=== PATIENT | female | born 1995 | race Caucasian/White ===

== ENCOUNTER → 2020-11-06 | Outpatient (CLI) | payer SELFPAY ==
--- NOTE | 2020-11-06 15:34 | US ---
EXAMINATION TYPE: US OB >= 14 wk fetus DATE OF EXAM: 11/06/2020 COMPARISON: None CLINICAL HISTORY: Z34.90 Encounter for supervision of normal Confirm dates TECHNIQUE: Transabdominal (TA) GESTATIONAL AGE / DATING Physician Established: Not established yet Dates by LMP: Unknown Dates by First Scan: This is 1st scan Dates by Current Scan: (25 weeks/4 days) EDC: 02/15/2021 SURVEY IUP: Single PLACENTA: Anterior PREVIA: No Previa FATMATA: 12.0 cm Normal CERVICAL LENGTH (transabdominal: norm > 3.0cm): 4.5 cm BIOMETRY PRESENTATION: Breech LIE: Longitudinal BPD: 6.2 cm 25 weeks / 2 days HC: 23.7 cm 25 weeks / 5 days AC: 21.3 cm 25 weeks / 6 days FL: 4.9 cm 26 weeks / 3 days ESTIMATED WEIGHT IN GRAMS: 880 grams ESTIMATED WEIGHT IN LBS/OZ: 1 lbs. 15 oz. WEIGHT PERCENTAGE BASED ON ESTABLISHED DATES: % HC/AC: 1.11 Normal FL/AC: 23.0 Normal HEART RATE: 132 bpm RHYTHM: Normal Femur length to head circumference ratio is minimally elevated measuring 20.69, normal 18.6/20.36. IMPRESSION: 1. Single intrauterine gestation estimated at 25 weeks 4 days gestation based on the current ultrasou nd measurements. Cardiac activity measures 132 bpm during the exam. 2. Slight femur length to head circumference ratio outside standard limits.
== END | disposition home or self-care (01) ==
LOC: RADUSWWP 14:35
PROVIDERS: ATTEND Obstetrics & Gynecology
DX: R93.89 Abnormal findings on diagnostic imaging of other specified body structures (principal); Z3A.25 25 weeks gestation of pregnancy
CPT/HCPCS: 76805

== ENCOUNTER → 2020-11-18 | Outpatient (CLI) | payer SELFPAY ==
--- NOTE | 2020-11-19 08:41 | US ---
EXAMINATION TYPE: US OB anatomy transabd DATE OF EXAM: 11/18/2020 COMPARISON: NONE HISTORY: Z34.90 SUPERVISION OF NORMAL anatomy exam at 27 weeks TECHNIQUE: OBTA EXAM MEASUREMENTS: GESTATIONAL AGE / DATING Physician Established: (27 weeks/2 days) EDC: 02/15/2021 Dates by LMP: unknown Dates by First Scan: NEW ACCOUNTS BANKING REPRESENTATIVE Dates by Current Scan for: (27 weeks/6 days) EDC: 02/11/2021 SURVEY IUP: Single PLACENTA: Anterior PREVIA: No previa FATMATA: 10.0 cm Normal CERVICAL LENGTH (transabdominal: norm > 3.0cm): 3.2 cm BIOMETRY PRESENTATION: Vertex LIE: Longitudinal BPD: 6.9 cm 27 weeks / 6 days HC: 24.5 cm 26 weeks / 5 days AC: 23.4 cm 27 weeks / 6 days FL: 5.4 cm 28 weeks / 5 days ESTIMATED WEIGHT IN GRAMS: 1145 grams ESTIMATED WEIGHT IN LBS/OZ: 2 lbs. 8 oz. WEIGHT PERCENTAGE BASED ON ESTABLISHED DATE: 63 % HC/AC: 1.05 Normal FL/AC: 23 Normal HEART RATE: 120 bpm RHYTHM: Normal ANATOMY SEEN (within normal limits): * Lateral Vent (< 1 cm) 0.4 cm * Cisterna Magna (< 1.1 cm) 0.3 cm * Cerebellum (varies with age) 2.7 cm Choroid Plexus (bilateral) Midline Falx Cavus Septi Pellucidi Four Chamber Heart Outflow tracts: LVOT/RVOT Stomach Situs Nose / Lips Diaphragm Kidneys (bilateral) Bladder Cord Insert Three Vessel Cord Longitudinal Spine Transverse Spine Arms (bilateral) Legs (bilateral) IMPRESSION: Single viable intrauterine .
== END | disposition home or self-care (01) ==
LOC: RADUSWWP 16:19
PROVIDERS: ATTEND Obstetrics & Gynecology
DX: Z34.92 Encounter for supervision of normal pregnancy, unspecified, second trimester (principal); Z3A.27 27 weeks gestation of pregnancy
CPT/HCPCS: 76811

== ENCOUNTER → 2021-01-27 | Outpatient (CLI) | payer OTHER ==
--- NOTE | 2021-01-27 10:28 | US ---
EXAMINATION TYPE: US OB >= 14 wk fetus DATE OF EXAM: 01/27/2021 COMPARISON: Second trimester ultrasound November 06, 2020 CLINICAL HISTORY: Z34.90 Encounter for supervision of normal pregnan TECHNIQUE: Transabdominal (TA) GESTATIONAL AGE / DATING Physician Established: (37 weeks/2 days) EDC: 02/15/21 Dates by LMP: LMP unknown Dates by First Scan: (37 weeks/2 days) EDC: 02/15/21 Dates by Current Scan: (36 weeks/4 days) EDC: 02/20/21 SURVEY IUP: Single PLACENTA: Anterior PREVIA: No Previa FATMATA: 12.8 cm Normal CERVICAL LENGTH (transabdominal: norm > 3.0cm): 3.1 cm BIOMETRY PRESENTATION: Vertex LIE: Longitudinal BPD: 9.1 cm 37 weeks / 0 days HC: 31.7 cm 35 weeks / 5 days AC: 31.8 cm 35 weeks / 6 days FL: 7.3 cm 37 weeks / 3 days ESTIMATED WEIGHT IN GRAMS: 2894 grams ESTIMATED WEIGHT IN LBS/OZ: 6 lbs. 6 oz. WEIGHT PERCENTAGE BASED ON ESTABLISHED DATES: 31% HC/AC: 1.0 Normal FL/AC: 23% Normal HEART RATE: 135 bpm RHYTHM: Normal Single live intrauterine gestation is redemonstrated. No cervical thinning currently. Normal cephalad presentation currently. No ultrasound evidence for placenta previa. Calculated amniotic fluid index within normal limits. biometry measurements congruent and within normal limits with satisfactor y interval progression. IMPRESSION: As above.
== END | disposition home or self-care (01) ==
LOC: RADUSWWP 09:33
PROVIDERS: ATTEND Obstetrics & Gynecology
DX: Z34.90 Encounter for supervision of normal pregnancy, unspecified, unspecified trimester (principal)
CPT/HCPCS: 76805

== ENCOUNTER 2021-02-02 09:50 | Inpatient (IN) | payer OTHER ==
[2021-02-02] MEDS ORDERED: TERBUTALINE 1 MG/ML VIAL SQ PRN (10:59)
[2021-02-02] MEDS ORDERED: LIDOCAINE 0.5% (PF) 5 MG/ML (50 ML SDV) SQ PRN (10:59)
[2021-02-02] MEDS ORDERED: OXYTOCIN 10 UNIT/ML 1 ML VIAL IM PRN (10:59)
[2021-02-02] MEDS ORDERED: METHYLERGONOVINE 0.2 MG/ML 1 ML AMP IM PRN (10:59)
[2021-02-02] MEDS ORDERED: CARBOPROST TROMETHAMINE 250 MCG/ML 1 ML AMP IM PRN (10:59)
[2021-02-02] MEDS ORDERED: OXYTOCIN 30 UNITS/500 ML NS 30 UNIT in SALINE 1 500ML.BAG IV SCH ×2 (11:00→13:00)
[2021-02-02] MEDS: LACTATED RINGERS 1,000 ML IV SCH ×4 (11:10→22:24)
[2021-02-02 11:46] LABS: Uric Acid 5.7 mg/dL (3.7-7.4)
[2021-02-02 11:49] LABS: Appearance,Urine Clear (Clear); Bilirubin,Urine Negative (Negative); Blood,Urine Negative (Negative); Color,Urine Light Yellow; Creatinine,Urine Random 27.1 mg/dL; Glucose,Urine (UA) Negative (Negative); Ketones,Urine Negative (Negative); Leukocyte Esterase,Urine Negative (Negative); Nitrite,Urine Negative (Negative); PH, Urine 6.5 (5.0-8.0); Protein,Urine 1+ (Negative); Protein/Creatinine Ratio,Urine 3.284; Specific Gravity,Urine 1.004 (1.001-1.035); Urobilinogen,Urine <2.0 mg/dL (<2.0)
[2021-02-02 11:50] LABS: Squamous Epithelial Cell,Urine <1 /hpf (0-4); WBC,Urine <1 /hpf (0-5)
[2021-02-02] MEDS ORDERED: LACTATED RINGERS 1,000 ML IV ONE (11:51)
[2021-02-02] MEDS ORDERED: CITRIC ACID-SODIUM CITRATE 15 ML CUP PO ONE (11:51)
[2021-02-02 11:56] LABS: Amphetamine Screen,Urine Not Detected (NotDetected); Barbiturate Screen,Urine Not Detected (NotDetected); Benzodiazepines Screen,Urine Not Detected (NotDetected); Cocaine Screen,Urine Not Detected (NotDetected); Methadone Screen, Urine Not Detected (NotDetected); Opiate Screen,Urine Not Detected (NotDetected); Oxycodone Screen, Urine Not Detected (NotDetected); Phencyclidine Screen,Urine Not Detected (NotDetected); Tricyclic Antidepressant,Urine Not Detected (NotDetected); Urn Cannabinoid Scrn Not Detected (NotDetected)
[2021-02-02 11:58] LABS: INR 0.8 (<1.2)
[2021-02-02 12:01] LABS: Partial Thromboplastin Time 19.8 sec (22.0-30.0); Prothrombin Time 9.4 sec (9.0-12.0)
[2021-02-02 12:04] LABS: Anisocytosis Moderate; Basophils # (A) 0.1 k/uL (0-0.2); Basophils % (A) 1 %; Eosinophils # (A) 0.2 k/uL (0-0.7); Eosinophils % (A) 2 %; HCT 34.8 % (34.0-46.0); Hypochromasia Marked; Lymphocytes # (A) 1.3 k/uL (1.0-4.8); Lymphocytes % (A) 11 %; MCHC 31.6 g/dL (31.0-37.0); MCV 75.9 fL (80.0-100.0); Mean Platelet Volume 10.5; Microcytosis Moderate; Monocytes # (A) 0.7 k/uL (0-1.0); Monocytes % (A) 6 %; Neutrophils # (A) 8.9 k/uL (1.3-7.7); Neutrophils % (A) 79 %; Platelet Count 197 k/uL (150-450); RBC 4.59 m/uL (3.80-5.40); RDW 20.4 % (11.5-15.5); WBC 11.3 k/uL (3.8-10.6)
[2021-02-02] MEDS ORDERED: fentaNYL (PF) 50 MCG/ML 2 ML AMP ONE (12:09)
[2021-02-02] MEDS ORDERED: OXYTOCIN 10 UNIT/ML 1 ML VIAL ONE (12:09)
[2021-02-02] MEDS ORDERED: MORPHINE SULFATE (PF) 0.3 MG/0.3 ML SYR ONE (12:09)
[2021-02-02] MEDS ORDERED: KETOROLAC 15 MG/ML 1 ML VIAL ONE (12:09)
[2021-02-02] MEDS ORDERED: ONDANSETRON 4 MG/2 ML VIAL ONE (12:09)
[2021-02-02] MEDS ORDERED: diphenhydrAMINE 50 MG/ML 1 ML VIAL IVP PRN (12:50)
[2021-02-02] MEDS ORDERED: Rhogam IMMUNE GLOBULIN 1,500 UNIT/1 ML IM ONE (12:50)
[2021-02-02] MEDS ORDERED: ONDANSETRON 4 MG/2 ML VIAL IVP PRN (12:50)
[2021-02-02] MEDS ORDERED: HYDROmorphone 2 MG TAB PO PRN (12:50)
[2021-02-02] MEDS ORDERED: METOCLOPRAMIDE 5 MG/ML 2 ML VIAL IVP PRN (12:50)
[2021-02-02] MEDS ORDERED: diphenhydrAMINE 25 MG CAP PO PRN (12:50)
[2021-02-02] MEDS ORDERED: LANOLIN CREAM 5 GM TUBE TOPICAL PRN (12:50)
[2021-02-02] MEDS ORDERED: NALOXONE 0.4 MG/ML 1 ML VIAL IV PRN (12:50)
[2021-02-02] MEDS ORDERED: ZOLPIDEM 5 MG TAB PO PRN (12:50)
--- NOTE | 2021-02-02 13:01 | P.HPOB ---
History of Present Illness H&P Date: 02/02/21 Chief Complaint: Leaking of fluid. This patient is a 25-year-old 1 para 0 female estimated date of confinement 02/15/2021 estimated gestational age 38 and one sevenths weeks who presents to labor and delivery triage with complaints of gush of fluid at 9:00 this morning. Patient's care has been in [facility], patient called her polyethylene combiner this morning and they told her to come to [facility]. We did call the patient's office and were able to get records. records indicate the patient is Rh- and she did receive program. Patient denies any complications from this . Upon presentation patient's be grossly ruptured and thick meconium-stained fluid. She's had no care here at this hospital. Review of Systems Genitourinary: Reports Menstruation: Reports amenorrhea Past Medical History Past Medical History: Asthma History of Any Multi-Drug Resistant Organisms: None Reported Past Surgical History: No Surgical Hx Reported Additional Past Surgical History / Comment(s): right knee surgery x 2 Past Anesthesia/Blood Transfusion Reactions: No Reported Reaction Past Psychological History: Depression Additional Psychological History / Comment(s): treated depression in the past Smoking Status: Never smoker Past Drug Use History: None Reported - Past Family History Sister(s) Family Medical History: Diabetes Mellitus Father Family Medical History: Hypertension Medications and Allergies Home Medications Medication Instructions Recorded Confirmed Type Albuterol Inhaler [Ventolin Hfa 2 puff INHALATION DAILY PRN 02/02/21 02/02/21 History Inhaler] Ferrous Sulfate [Iron] 325 mg PO DAILY 02/02/21 02/02/21 History Pnv No.95/Ferrous Fum/Folic AC 1 each PO DAILY 02/02/21 02/02/21 History [ Multivitamin Tablet] Allergies Allergy/AdvReac Type Severity Reaction Status Date / Time No Known Allergies Allergy Verified 02/02/21 10:11 Exam Vital Signs Temp Pulse Resp BP Pulse Ox 02/02/21 11:32 97.6 F 66 17 139/91 98 Intake and Output 02/01/21 02/02/21 02/02/21 22:59 06:59 14:59 Other: Weight 56.699 kg - OBG Physical Exam Abdomen: bowel sounds normal, no diffuse tenderness, no bruit present, no guarding noted, no hepatomegaly, no splenomegaly, no mass Vulva: both: normal Vagina: normal moisture (Thick meconium-stained fluid), no discharge Cervix: no lesion (Cervix is 350% -2 station vertex), no discharge Uterus: enlarged Results blood work shows she has A negative. She did receive RhoGAM. Result Diagrams: 02/02/21 11:10 02/02/21 11:10 Abnormal Lab Results - Last 24 Hours (Table) 02/02/21 02/02/21 02/02/21 Range/Units 11:10 11:10 11:10 WBC 11.3 H (3.8-10.6) k/uL Hgb 11.0 L (11.4-16.0) gm/dL MCV 75.9 L (80.0-100.0) fL MCH 24.0 L (25.0-35.0) pg RDW 20.4 H (11.5-15.5) % Neutrophils # 8.9 H (1.3-7.7) k/uL APTT 19.8 L (22.0-30.0) sec Urine Protein 1+ H (Negative) Assessment and Plan Assessment: This is a 25-year-old 1 para 0 female estimated gestational age 38 and one sevenths weeks who presents to labor and delivery with thick meconium- stained fluid and monitoring shows a nonreactive NST with one deep variable deceleration. Due to my concerns for the unknown etiology of her meconium and the remote from delivery and recommended proceed immediately with delivery by section. Plan is primary low transverse section. Patient and I and her partner have discussed the surgery and risks including risks of infec tion, bleeding, possible injury to bowel, bladder, vessels, and/or other organs. All the patient's questions are answered and a written consent is obtained. (1) 38 weeks gestation of Current Visit: Yes Status: Acute Code(s): Z3A.38 - 38 WEEKS GESTATION OF SNOMED Code(s): 22895701 (2) Spontaneous rupture of amniotic membranes Current Visit: Yes Status: Acute Code(s): JHN9128 - SNOMED Code(s): 068835232 (3) Thick meconium stained amniotic fluid Current Visit: Yes Status: Acute Code(s): P96.83 - MECONIUM STAINING SNOMED Code(s): 170934288 (4) Non-reassuring electronic monitoring tracing Current Visit: Yes Status: Acute Code(s): O36.8390 - MATERN CARE FOR ABNLT FETL HRT RATE OR RHYM, UNSP TRI, UNSP SNOMED Code(s): 163168525
--- NOTE | 2021-02-02 13:07 | P.OP ---
Date of Procedure: 02/02/21 Preoperative Diagnosis: #1: 38 and one sevenths weeks . #2: Thick meconium-stained amniotic fluid. #3: Nonreassuring heart rate tracing. #4: Remote from delivery Postoperative Diagnosis: Same Procedure(s) Performed: Primary low transverse section Anesthesia: spinal Surgeon: Maynor Beltran Industrial Methods Consultant #1: Izabel Brooks Estimated Blood Loss (ml): 600 Pathology: other (Placenta) Condition: stable Disposition: floor Indications for Procedure: Please see dictated H&P for intimate details of this patient's admission. Brief summary this is a 25-year-old 1 para 0 female 38 weeks gestation admitted to this labor and delivery unit with complaints of gush of green amniotic fluid patient has no care here. heart tones are not reactive initially and she does have a deep variable deceleration. Patient is r emote from delivery therefore recommended proceed with delivery immediately by section. She does understand this procedure and risks. Operative Findings: This was a vigorous viable female infant Apgars 8 and 9 delivery time is 1227 hrs. Infant grossly appeared normal. The baby and the placenta were meconium- stained. There was a loop of cord next to the head Description of Procedure: This patient is taken to the operating room. She is already had a Turpin catheter placed to straight drain. Patient is sat up and after an appropriate timeout spinal anesthetic is placed. With an adequate level of anesthesia, she has abdominal prep and drape. Scalpels and taken Pfannenstiel skin incision is then made. A second scalpel is taken down the fascia and the fascia scored with a knife. Fascial incision extended bilaterally using the Doll scissors. Fascia is dissected off the rectus muscles. The rectus muscles are the peritoneum identified and entered sharply. Peritoneal incision extended superior and inferior without difficulty. Bladder blade is then placed. Bladder peritoneum was taken sharply off the lower uterine segment. Scalpels and taken a low transverse uterine incision is then made. Using a hemostat I into the uterine cavity bluntly and there is loss of thick meconium fluid. Uterine incision is extended bluntly. Piece of cord is presenting right at the incision right next to the head. Infant's head is then gently guided through the incision with fundal pressure. Mouth and nares are bulb suctioned. The umbilical cords and doubly clamped and cut infant is handed off immediately to the sample collector in attendance. This is a vigorous viable female Apgars 8 and 9 delivery time was 1227 hrs. After delivery of the infant the placenta is manually extracted intact. This is sent to pathology. Uterus is then externalized uterine incision demarcated with Foley clamps. Uterine incision then closed using 0 Vicryl running locked fashion 2 layers. Excellent hemostasis is noted. Excess fluid is removed from the abdomen and pelvis. Uterus, tubes, ovaries appear normal for term gestation. The parietal peritoneum was then closed using 0 Vicryl running fashion. The rectus muscles reapproximated in 0 Vicryl interrupted fashion. Fascial incision is then closed using 0 PDS. Fascial incision is intact and hemostatic. Subcutaneous tissues and closed using a 3-0 Vicryl. Skin is and closed using ary. All counts are correct 3. There are no complications. and mother are stable in the delivery room.
[2021-02-02] MEDS: KETOROLAC 15 MG/ML 1 ML VIAL IVP PRN (18:11)
[2021-02-02 22:01] LABS: Hepatitis B Surface Antigen Non-Reactive (Non-Reactive)
[2021-02-02] MEDS: SENNOSIDES-DOCUSATE SODIUM 1 EACH TAB PO SCH (22:23)
[2021-02-03] MEDS: KETOROLAC 15 MG/ML 1 ML VIAL IVP PRN (00:25)
[2021-02-03] MEDS: ACETAMINOPHEN TAB 500 MG TAB PO PRN ×3 (04:54→22:56)
--- NOTE | 2021-02-03 06:32 | P.PNOBGPC ---
Subjective - Subjective Patient reports: Reports appetite normal, Reports voiding normally, Reports pain well controlled, Reports ambulating normally : doing well Objective - Vital Signs Latest vital signs: Vital Signs Temp Pulse Resp BP Pulse Ox 02/03/21 04:00 97.9 F 75 17 128/77 98 02/02/21 23:44 98.1 F 78 18 134/79 100 02/02/21 20:00 97.7 F 80 18 136/78 100 02/02/21 14:50 97.5 F L 52 L 16 145/69 99 02/02/21 14:20 50 L 16 142/70 100 02/02/21 13:50 52 L 17 120/73 100 02/02/21 13:35 49 L 16 103/62 98 02/02/21 13:20 52 L 16 105/68 99 02/02/21 13:05 61 17 120/71 98 02/02/21 12:50 96.7 F L 51 L 17 116/70 99 02/02/21 11:32 97.6 F 66 17 139/91 98 Intake and Output 02/02/21 02/02/21 02/03/21 14:59 22:59 06:59 Intake Total 1000 1000 Output Total 200 200 Balance 800 800 Intake: IV 1000 1000 Output: Urine 200 200 Uretheral (Turpin) 200 Other: Voiding Method Indwelling Catheter Indwelling Catheter # Voids 1 Weight 56.699 kg - Exam Lungs: bilateral: normal Chest: Normal S1, Normal S2 Extremities: Present: normal Abdomen: Present: normal appearance, soft. Absent: distention, tenderness Incision: Present: normal, dry, intact Uterus: Present: normal, firm - Labs Labs: Abnormal Lab Results - Last 24 Hours (Table) 02/02/21 02/02/21 02/02/21 Range/Units 11:10 11:10 11:10 WBC 11.3 H (3.8-10.6) k/uL Hgb 11.0 L (11.4-16.0) gm/dL MCV 75.9 L (80.0-100.0) fL MCH 24.0 L (25.0-35.0) pg RDW 20.4 H (11.5-15.5) % Neutrophils # 8.9 H (1.3-7.7) k/uL APTT 19.8 L (22.0-30.0) sec Urine Protein 1+ H (Negative) Assessment and Plan Assessment: Post operative day #1. Patient is resting without new complaints. Vital signs are stable and she is afebrile. Of note yesterday on admission she had some elevated blood pressures and preeclampsia labs were sent which showed normal laboratory values with the exception of 1+ protein and elevated protein creatinine ratio. Her blood pressures have been fine since delivery. Uterus is firm nontender and her incision is intact and dry. She's having normal lochia. CBC is pending at time of this dictation. Patient's tolerating clear liquids and she is urinating without difficulty. Plan today is to advance her diet, check a CBC, allow the patient to shower, and encourage ambulation. (1) 38 weeks gestation of Current Visit: Yes Status: Acute Code(s): Z3A.38 - 38 WEEKS GESTATION OF SNOMED Code(s): 06689828 (2) Spontaneous rupture of amniotic membranes Current Visit: Yes Status: Acute Code(s): TMK3411 - SNOMED Code(s): 510298409 (3) Thick meconium stained amniotic fluid Current Visit: Yes Status: Acute Code(s): P96.83 - MECONIUM STAINING SNOMED Code(s): 370597263 (4) Non-reassuring electronic monitoring tracing Current Visit: Yes Status: Acute Code(s): O36.8390 - MATERN CARE FOR ABNLT FETL HRT RATE OR RHYM, UNSP TRI, UNSP SNOMED Code(s): 880689324
[2021-02-03 07:46] LABS: Anisocytosis Moderate; Basophils % (A) 0 %; Eosinophils # (A) 0.1 k/uL (0-0.7); Eosinophils % (A) 1 %; HCT 27.1 % (34.0-46.0); Hypochromasia Slight; Lymphocytes # (A) 1.4 k/uL (1.0-4.8); Lymphocytes % (A) 10 %; MCHC 33.1 g/dL (31.0-37.0); MCV 75.6 fL (80.0-100.0); Mean Platelet Volume 7.9; Microcytosis Moderate; Monocytes # (A) 0.7 k/uL (0-1.0); Monocytes % (A) 5 %; Neutrophils # (A) 12.3 k/uL (1.3-7.7); Neutrophils % (A) 84 %; Platelet Count 178 k/uL (150-450); RBC 3.58 m/uL (3.80-5.40); RDW 20.9 % (11.5-15.5); WBC 14.7 k/uL (3.8-10.6)
[2021-02-03] MEDS: SENNOSIDES-DOCUSATE SODIUM 1 EACH TAB PO SCH ×2 (07:55→19:39)
[2021-02-03] MEDS: IBUPROFEN 600 MG TAB PO PRN ×3 (07:55→19:39)
--- NOTE | 2021-02-03 09:07 | P.PN ---
Progress Note - Text Date:02/03/21 Time:645am Patient is status post . Patient seen this morning with VAS score of 6.no c/o of pruritus, no c/o nausea/vomiting, comfortable and doing well.
[2021-02-03] MEDS: SIMETHICONE 80 MG CHEWABLE PO PRN ×2 (11:57→19:38)
[2021-02-03 15:17] LABS: C. trachomatis,PCR Negative (Neg,Equiv); Chlamydia trachomatis Source Urine; N. gonorrhoeae,PCR Negative (Neg,Equiv); Neisseria Source Urine
[2021-02-04] MEDS: IBUPROFEN 600 MG TAB PO PRN ×4 (01:25→22:08)
[2021-02-04] MEDS: ACETAMINOPHEN TAB 500 MG TAB PO PRN ×3 (04:25→20:08)
--- NOTE | 2021-02-04 06:00 | P.PNOBGPC ---
Subjective - Subjective Patient reports: Reports appetite normal, Reports voiding normally, Reports pain well controlled, Reports ambulating normally : doing well Objective - Vital Signs Latest vital signs: Vital Signs Temp Pulse Resp BP Pulse Ox 02/03/21 23:41 98.7 F 78 16 124/69 02/03/21 16:00 98.7 F 76 16 123/76 98 02/03/21 11:59 99.6 F 88 16 123/79 96 02/03/21 08:00 98.2 F 63 18 134/87 100 Intake and Output 02/03/21 02/03/21 02/04/21 14:59 22:59 06:59 Other: # Voids 2 1 1 - Exam Lungs: bilateral: normal Chest: Normal S1, Normal S2 Extremities: Present: normal Abdomen: Present: normal appearance, soft. Absent: distention, tenderness Incision: Present: normal, dry, intact Uterus: Present: normal, firm - Labs Labs: Abnormal Lab Results - Last 24 Hours (Table) 02/03/21 Range/Units 06:39 WBC 14.7 H (3.8-10.6) k/uL RBC 3.58 L (3.80-5.40) m/uL Hgb 9.0 L D (11.4-16.0) gm/dL Hct 27.1 L (34.0-46.0) % MCV 75.6 L (80.0-100.0) fL RDW 20.9 H (11.5-15.5) % Neutrophils # 12.3 H (1.3-7.7) k/uL Assessment and Plan Assessment: Postoperative day #2. Patient is complaining of gas pains but otherwise feels well. Vital signs are stable and she is afebrile. Uterus is firm nontender and her incision is intact and dry. Patient is tolerating some solid fluid however says she hasn't passed much gas. CBC yesterday was fine. Baby is having some mild jaundice issues. Plan today is to encourage more ambulation. Also continue routine postoperative care. (1) 38 weeks gestation of Current Visit: Yes Status: Acute Code(s): Z3A.38 - 38 WEEKS GESTATION OF SNOMED Code(s): 68016877 (2) Spontaneous rupture of amniotic membranes Current Visit: Yes Status: Acute Code(s): SAY2704 - SNOMED Code(s): 869281584 (3) Thick meconium stained amniotic fluid Current Visit: Yes Status: Acute Code(s): P96.83 - MECONIUM STAINING SNOMED Code(s): 737963011 (4) Non-reassuring electronic monitoring tracing Current Visit: Yes Status: Acute Code(s): O36.8390 - MATERN CARE FOR ABNLT FETL HRT RATE OR RHYM, UNSP TRI, UNSP SNOMED Code(s): 289005590
[2021-02-04] MEDS: SENNOSIDES-DOCUSATE SODIUM 1 EACH TAB PO SCH ×2 (07:17→20:07)
[2021-02-04] MEDS: SIMETHICONE 80 MG CHEWABLE PO PRN ×2 (15:08→22:08)
[2021-02-05 01:05] VITALS: RESP 16
[2021-02-05] MEDS: IBUPROFEN 600 MG TAB PO PRN ×2 (04:37→09:00)
[2021-02-05] MEDS: ACETAMINOPHEN TAB 500 MG TAB PO PRN (06:20)
--- NOTE | 2021-02-05 06:42 | P.PNOBGPC ---
Subjective - Subjective Patient reports: Reports appetite normal, Reports voiding normally, Reports pain well controlled, Reports ambulating normally : doing well Objective - Vital Signs Latest vital signs: Vital Signs Temp Pulse Resp BP Pulse Ox 02/05/21 00:00 97.7 F 83 16 133/87 02/04/21 16:00 98.9 F 88 18 126/78 95 02/04/21 08:00 98.9 F 88 18 126/72 98 Intake and Output 02/04/21 02/04/21 02/05/21 14:59 22:59 06:59 Other: # Voids 1 2 2 # Bowel Movements 2 - Exam Lungs: bilateral: normal Chest: Normal S1, Normal S2 Extremities: Present: normal Abdomen: Present: normal appearance, soft. Absent: distention, tenderness Incision: Present: normal, dry, intact Uterus: Present: normal, firm Assessment and Plan Assessment: Postoperative day #3. Patient is resting without complaints. Vital signs are stable and she is afebrile. Patient had 2 bowel movements yesterday and feeling much better. Plan today is to continue routine care and discharge home later today. (1) 38 weeks gestation of Current Visit: Yes Status: Acute Code(s): Z3A.38 - 38 WEEKS GESTATION OF SNOMED Code(s): 04456310 (2) Spontaneous rupture of amniotic membranes Current Visit: Yes Status: Acute Code(s): WRL6639 - SNOMED Code(s): 938930695 (3) Thick meconium stained amniotic fluid Current Visit: Yes Status: Acute Code(s): P96.83 - MECONIUM STAINING SNOMED Code(s): 506902330 (4) Non-reassuring electronic monitoring tracing Current Visit: Yes Status: Acute Code(s): O36.8390 - MATERN CARE FOR ABNLT FETL HRT RATE OR RHYM, UNSP TRI, UNSP SNOMED Code(s): 249985661
--- NOTE | 2021-02-05 06:43 | P.DS ---
Providers Date of admission: 02/02/21 10:41 Expected date of discharge: 02/05/21 Attending physician: Maynor Beltran Primary care physician: Stated None - Discharge Diagnosis(es) (1) 38 weeks gestation of Current Visit: Yes Status: Acute (2) Spontaneous rupture of amniotic membranes Current Visit: Yes Status: Acute (3) Thick meconium stained amniotic fluid Current Visit: Yes Status: Acute (4) Non-reassuring electronic monitoring tracing Current Visit: Yes Status: Acute Hospital Course: Please see dictated H&P for intimate details of this patient's admission. Brief summary this is a pleasant 25-year-old 1 para 0 female presented to labor and delivery with complaints of gush of fluid. Patient had no care here and subsequently underwent a primary low transverse section for nonreassuring heart tones and thick meconium-stained fluid. Please see dictated operative note. Postoperatively the patient and baby did well was discharged home postoperative day #3 follow-up in 1 week. Procedures: Primary low transverse section Patient Condition at Discharge: Good Plan - Discharge Summary New Discharge Prescriptions: No Action Ferrous Sulfate [Iron] 325 mg PO DAILY Pnv No.95/Ferrous Fum/Folic AC [ Multivitamin Tablet] 1 each PO DAILY Albuterol Inhaler [Ventolin Hfa Inhaler] 2 puff INHALATION DAILY PRN PRN Reason: Respiratory Distress Discharge Medication List Albuterol Inhaler [Ventolin Hfa Inhaler] 2 puff INHALATION DAILY PRN 02/02/21 [History] Ferrous Sulfate [Iron] 325 mg PO DAILY 02/02/21 [History] Pnv No.95/Ferrous Fum/Folic AC [ Multivitamin Tablet] 1 each PO DAILY 02/02/21 [History]
[2021-02-05] MEDS: SENNOSIDES-DOCUSATE SODIUM 1 EACH TAB PO SCH (09:00)
[2021-02-05 09:32] VITALS: BP 134/81; PULSE 62; TEMP 98
[2021-02-06 21:17] LABS: HIV 2 AB Non-Reactive (Non-Reactive); HIV AB P24 Non-Reactive (Non-Reactive); HIV P24 AG Non-Reactive (Non-Reactive)
== END 2021-02-05 13:35 | disposition home or self-care (01) | DRG 788 ==
LOC: FBPOP 09:50 → 4FBP 10:41
PROVIDERS: ADMIT Obstetrics & Gynecology; ATTEND Obstetrics & Gynecology
PROC: 10D00Z1 Extraction of Products of Conception, Low, Open Approach (ICD-10-PCS; principal; 2021-02-02 13:00)
DX: O76 Abnormality in fetal heart rate and rhythm complicating labor and delivery (principal); J45.909 Unspecified asthma, uncomplicated; O77.0 Labor and delivery complicated by meconium in amniotic fluid; O99.52 Diseases of the respiratory system complicating childbirth; Z37.0 Single live birth; Z3A.38 38 weeks gestation of pregnancy; Z83.3 Family history of diabetes mellitus
CPT/HCPCS: 59025; 80306; 81001; 82570; 82947; 83615; 84112; 84156; 84450; 84460; 84520; 84550; 85025; 85384; 85461; 85610; 85730; 86762; 86780; 86850; 86870; 86880; 86900; 86901; 87340; 87390; 87491; 87591; 88307; 99213

== ENCOUNTER 2024-05-17 06:05 | Inpatient (IN) | payer OTHER | END 2024-05-19 13:55 | disposition home or self-care (01) | DRG 560 | LOC: 4FBP 06:05 | PROVIDERS: ADMIT Obstetrics & Gynecology; ATTEND Obstetrics & Gynecology | PROC: 10E0XZZ Delivery of Products of Conception, External Approach (ICD-10-PCS; principal; 2024-05-17) | PROC: 3E033VJ Introduction of Other Hormone into Peripheral Vein, Percutaneous Approach (ICD-10-PCS; 2024-05-17) | PROC: 10907ZC Drainage of Amniotic Fluid, Therapeutic from Products of Conception, Via Natural or Artificial Opening (ICD-10-PCS; 2024-05-17) | PROC: 0HQ9XZZ Repair Perineum Skin, External Approach (ICD-10-PCS; 2024-05-17) | DX: O34.211 Maternal care for low transverse scar from previous cesarean delivery (principal); Z37.0 Single live birth; O71.4 Obstetric high vaginal laceration alone; O99.02 Anemia complicating childbirth; J45.909 Unspecified asthma, uncomplicated; Z3A.38 38 weeks gestation of pregnancy; Z88.0 Allergy status to penicillin; Z88.8 Allergy status to other drugs, medicaments and biological substances ==